=== PATIENT | female | born 1940 | race African-American/Black ===

== ENCOUNTER 2024-08-20 12:17 | Emergency (ER) | payer MEDICARE ==
[~2024-08-20] VITALS: Ht 167.6 cm; Wt 56.7 kg
[2024-08-20] MEDS ORDERED: ACETAMINOPHEN 325 MG TABLET ONE (12:45)
[2024-08-20] MEDS: ACETAMINOPHEN 325 MG TABLET PO ONE (12:48)
[2024-08-20 15:48] VITALS: BP 135/89; TEMP 98.5; O2SAT 100
== END 2024-08-20 15:27 | disposition home or self-care (01) ==
LOC: ER 12:17
DX: S49.91XA Unspecified injury of right shoulder and upper arm, initial encounter (principal); S59.902A Unspecified injury of left elbow, initial encounter; W01.0XXA Fall on same level from slipping, tripping and stumbling without subsequent striking against object, initial encounter; W19.XXXA Unspecified fall, initial encounter; Y93.89 Activity, other specified; Y92.89 Other specified places as the place of occurrence of the external cause; Y99.8 Other external cause status
CPT/HCPCS: 73010-TC; 73030-TC; 73080-TC; 73090-TC

== ENCOUNTER 2024-08-31 12:19 | Emergency (ER) | payer MEDICARE ==
[~2024-08-31] VITALS: Ht 167.6 cm; Wt 61.2 kg
[2024-08-31 13:53] VITALS: BP 144/64; TEMP 97.8; O2SAT 99
== END 2024-08-31 13:54 | disposition home or self-care (01) ==
LOC: ER 12:26
DX: S49.81XA Other specified injuries of right shoulder and upper arm, initial encounter (principal); S52.132A Displaced fracture of neck of left radius, initial encounter for closed fracture; Z88.0 Allergy status to penicillin; X58.XXXA Exposure to other specified factors, initial encounter; Y93.89 Activity, other specified; Y92.89 Other specified places as the place of occurrence of the external cause; Y99.8 Other external cause status